=== PATIENT | female | born 1975 | race Caucasian/White ===

== ENCOUNTER → 2018-03-19 | Outpatient (CLI) | payer OTHER | LOC: MERGE 13:36 → GIMAGING 13:36 → EDSTATUS 16:01 | PROVIDERS: ATTEND Family Medicine | DX: M79.642 Pain in left hand (principal) | CPT/HCPCS: 73130-PO ==

== ENCOUNTER → 2018-07-29 | Outpatient (CLI) | payer OTHER | LOC: FIMAGING 15:19 | PROVIDERS: ATTEND Obstetrics & Gynecology | DX: Z12.31 Encounter for screening mammogram for malignant neoplasm of breast (principal); Z80.3 Family history of malignant neoplasm of breast ==